=== PATIENT | female | born 1995 | race Caucasian/White ===

== ENCOUNTER 2019-05-06 13:43 | Emergency (ER) | payer OTHER ==
[~2019-05-06] VITALS: Ht 152.4 cm; Wt 67.1 kg
[2019-05-06] MEDS ORDERED: PRENATAL TABLE1 EAC3 PO (15:04)
== END 2019-05-06 17:50 | disposition home or self-care (01) ==
LOC: ER 13:43
DX: R07.89 Other chest pain (principal)

== ENCOUNTER 2019-08-29 04:18 | Inpatient (IN) | payer OTHER ==
[~2019-08-29] VITALS: Ht 152.4 cm; Wt 78.0 kg
[~2019-08-29 04:18] MED LIST: PRENATAL TABLE1 EAC3 PO
== END 2019-08-31 11:09 | disposition home or self-care (01) | DRG 807 ==
LOC: LDR 04:18 → OB/GYN 12:53
PROVIDERS: ADMIT Specialist; ATTEND Specialist
PROC: 10E0XZZ Delivery of Products of Conception, External Approach (ICD-10-PCS; principal; 2019-08-29)
PROC: 3E0P7VZ Introduction of Hormone into Female Reproductive, Via Natural or Artificial Opening (ICD-10-PCS; 2019-08-29)
PROC: 3E033VJ Introduction of Other Hormone into Peripheral Vein, Percutaneous Approach (ICD-10-PCS; 2019-08-29)
PROC: 10907ZC Drainage of Amniotic Fluid, Therapeutic from Products of Conception, Via Natural or Artificial Opening (ICD-10-PCS; 2019-08-29)
PROC: 4A1HXCZ Monitoring of Products of Conception, Cardiac Rate, External Approach (ICD-10-PCS; 2019-08-29)
DX: O99.824 Streptococcus B carrier state complicating childbirth (principal); Z37.0 Single live birth; O24.420 Gestational diabetes mellitus in childbirth, diet controlled; Z3A.39 39 weeks gestation of pregnancy

== ENCOUNTER 2020-07-16 14:28 | Emergency (ER) | payer OTHER ==
[~2020-07-16] VITALS: Ht 152.4 cm; Wt 70.3 kg
[2020-07-16] MEDS ORDERED: ACETAMINOPHEN650 M2 PO (19:22)
== END 2020-07-16 19:45 | disposition home or self-care (01) ==
LOC: ER 14:28
DX: O20.0 Threatened abortion (principal)

== ENCOUNTER 2021-06-03 06:48 | Inpatient (IN) | payer OTHER ==
[~2021-06-03] VITALS: Ht 152.4 cm; Wt 85.7 kg
[~2021-06-03 06:48] MED LIST changes: +ACETAMINOPHEN650 M2 PO
[2021-06-03] MEDS ORDERED: LOW DOSE ASPIRI81 M1 PO (08:42)
== END 2021-06-05 11:19 | disposition home or self-care (01) | DRG 807 ==
LOC: OBS/DEL 06:48 → LDR 08:06 → OB/GYN 08:06
PROVIDERS: ADMIT Specialist; ATTEND Specialist
PROC: 10E0XZZ Delivery of Products of Conception, External Approach (ICD-10-PCS; principal; 2021-06-03)
PROC: 0W8NXZZ Division of Female Perineum, External Approach (ICD-10-PCS; 2021-06-03)
PROC: 4A1HXCZ Monitoring of Products of Conception, Cardiac Rate, External Approach (ICD-10-PCS; 2021-06-03)
DX: O80 Encounter for full-term uncomplicated delivery (principal); Z37.0 Single live birth; Z3A.37 37 weeks gestation of pregnancy; Z20.822 Contact with and (suspected) exposure to COVID-19